=== PATIENT | male | born 1965 | race Caucasian/White ===

== ENCOUNTER 2019-03-27 22:46 | Observation (INO) ==
[2019-03-27] MEDS: 0.9 % Sodium Chloride 1,000 ML IVC SCH (23:34)
[2019-03-27 23:37] LABS: Basophils % 0.3 %; Eosinophils # 0.1 K/mcL (0.0-0.6); Eosinophils % 0.4 %; Hematocrit 36.2 % (37.5-50.1); Hemoglobin 11.3 g/dL (12.9-16.9); Immature Granulocytes % 0.4 % (0-4); Lymphocytes # 1.5 K/mcL (0.6-4.6); Lymphocytes % 10.5 %; Mean Corpuscular HGB Conc 31.2 g/dL (31.6-35.5); Mean Corpuscular Hemoglobin 24.9 pg (28.0-33.3); Mean Corpuscular Volume 79.9 fL (83.0-100.0); Mean Platelet Volume 9.7 fL (9.4-12.4); Monocytes # 0.5 K/mcL (0.0-1.3); Monocytes % 3.7 %; Neutrophils # 11.8 K/mcL (1.6-8.9); Platelet Count 246 K/mcL (140-400); Red Blood Count 4.53 M/mcL (4.19-5.50); Red Cell Distribution Width 15.7 % (11.5-14.5); Segmented Neutrophils % 84.7 %; White Blood Count 13.9 K/mcL (4.3-11.1)
[2019-03-27 23:46] LABS: Bilirubin,Urine Negative (Negative); Blood,Urine Trace (Negative); Clarity,Urine Clear (Clear); Color,Urine Dark Yellow (Yellow); Glucose,Urine (UA) 250 mg/dL (Normal); Ketones,Urine Negative (Negative); Leukocyte Esterase,Urine Small (Negative); Nitrite,Urine Negative (Negative); PH,Urine 5.5 pH Units (5.0-8.0); Protein,Urine 100 mg/dL (Neg-Trace); Specific Gravity,Urine > 1.030 (1.010-1.025); Urobilinogen,Urine Normal (Normal)
[2019-03-27 23:49] LABS: Bacteria,Urine None Seen per hpf (None-Few); Hyaline Casts,Urine None Seen per lpf (None-Few); Squamous Epithelial Cell,Urine Moderate per lpf (None-Few); WBC,Urine 50-100 per hpf (0-3)
[2019-03-28 00:01] LABS: BUN/Creatinine Ratio 16 (6-26); Blood Urea Nitrogen 19 mg/dL (6-20); Calcium 8.9 mg/dL (8.6-10.3); Carbon Dioxide 27 mEq/L (23-29); Chloride 101 mEq/L (98-107); Glucose 130 mg/dL (70-105); Lipase 24 Units/L (11-82); Osmolality,Calculated 286 (280-300); Potassium 3.5 mEq/L (3.5-5.1); Sodium 136 mEq/L (136-145); eGFR For African Americans > 60 (> 60); eGFR For Non-African Americans > 60 (> 60)
[2019-03-28] MEDS ORDERED: Ondansetron 4 MG/2 ML VIAL IVP ONE (00:06)
[2019-03-28] MEDS ORDERED: Ketorolac 30 MG/ML VIAL IVP ONE (00:06)
[2019-03-28] MEDS: 0.9 % Sodium Chloride 1,000 ML IVC SCH (00:46)
[2019-03-28] MEDS ORDERED: Piperacillin/Tazobactam 3.375 GM in 0.9 % Sodium Chloride Mini Bag 100 ML IVPB ONE (01:25)
--- NOTE | 2019-03-28 02:08 | Emergency Department Note ---
Disposition Clinical Impression: SIRS (systemic inflammatory response syndrome), Left-shifted white blood cells Prostatitis Qualifiers: Prostatitis type: acute Qualified Code(s): N41.0 - Acute prostatitis Fever Qualifiers: Fever type: unspecified Qualified Code(s): R50.9 - Fever, unspecified Sepsis Qualifiers: Sepsis type: sepsis due to unspecified organism Sepsis acute organ dysfunction status: without acute organ dysfunction Qualified Code(s): A41.9 - Sepsis, unspecified organism Leukocytosis Qualifiers: Leukocytosis type: unspecified Qualified Code(s): D72.829 - Elevated white blood cell count, unspecified Disposition: Admitted As Inpatient Condition: Fair Time of Disposition: 01:35 Fever HPI - General Chief Complaint: ED Fever Stated Complaint: Fever, Chills, Body Aches Time Seen by Provider: 03/27/19 23:17 Source: patient, family Limitations: no limitations Nursing Notes Reviewed: Yes Vital Signs Reviewed: Yes - History of Present Illness HPI Narrative: 53-year-old male presents complaining of lower midline abdominal pain associated with nausea, dysuria, subjective fever, and chills. He denies any diarrhea, vomiting, chest pain, palpitations. Patient also complains of generalized body aches and states that he overall just does not feel well. Denies history of kidney stones. States that he has had his gallbladder and he believes his appendix out. He states that although the location of his pain is lower abdominal area/suprapubic area states it is very deep and palpation really does not make it any worse but ambulating and sitting up sometimes does. Denies any sick contacts or IV drug use. Pt Subjective Complaint: fever Onset (ago): day(s) (1) Temperature Source: subjective Associated symptoms: Reports: chills, abdominal pain, nausea. Denies: rhinorrhea, nasal congestion, sore throat, stiff neck, cough, chest pain, vomiting, dysuria, rash Improves with: nothing Worsens with: other (Nothing specific) Treatments prior to arrival fever: acetaminophen - Related Data Home Medications Medication Instructions Recorded Confirmed Alprazolam 0.5 mg PO TID 12/09/15 03/28/19 Carvedilol 25 mg PO BID 12/09/15 03/28/19 Cyclobenzaprine HCl 10 mg PO TID 12/09/15 03/28/19 Glimepiride 4 mg PO BID 12/09/15 03/28/19 Lisinopril 40 mg PO DAILY 12/09/15 03/28/19 Meloxicam 15 mg PO DAILY 12/09/15 03/28/19 Metformin HCl 1,000 mg PO BID 12/09/15 03/28/19 Simvastatin 40 mg PO DAILY 12/09/15 03/28/19 Aspirin 81 mg PO DAILY 03/28/19 03/28/19 Allergies Allergy/AdvReac Type Severity Reaction Status Date / Time No Known Allergies Allergy Verified 07/07/17 14:53 All systems ED: reviewed and negative except as stated. Constitutional: Reports: fever, chills. Denies: weakness, weight change Eyes: Denies: eye pain, eye discharge, vision change ENT ED: Denies: ear pain, throat pain, dental pain, hearing loss, epistaxis, congestion, dysphagia Cardiovascular: Denies: chest pain, palpitations, dyspnea on exertion, edema, syncope Respiratory: Denies: cough, dyspnea, wheezes, hemoptysis, stridor Gastrointestinal: Reports: abdominal pain, nausea. Denies: vomiting, diarrhea, constipation, hematemesis, melena, hematochezia Genitourinary: Reports: urgency. Denies: dysuria, frequency, hematuria, discharge, testicular pain Musculoskeletal: Denies: back pain, neck pain, arthralgia, myalgia Integumentary: Denies: rash, abrasion, lesions Neurological: Denies: headache, weakness, numbness, paresthesias, confusion, ab normal gait, vertigo Psychiatric: Denies: anxiety, depression, suicidal thoughts, homicidal thoughts, auditory hallucinations, visual hallucinations Endocrine: Denies: fatigue Hematological/Lymphatic: Denies: easy bleeding, easy bruising Allergic/Immunologic: Denies: facial swelling, urticaria Fever PMH - Past Medical History Medical history: Reports: hyperlipidemia, hypertension, myocardial infarction Psychiatric history: Reports: anxiety - Social History Smoking Status: Former smoker Alcohol use: Reports: none Drug use: Reports: none Physical Exam - General Limitations: no limitations General appearance: alert, in distress - Head Head exam: atraumatic, normocephalic, normal inspection - Eye Eye exam: Present: normal appearance, PERRL, EOMI - ENT ENT exam: normal exam, normal oropharynx, mucous membranes dry - Neck Neck exam: Present: normal inspection, full ROM, trachea midline. Absent: tenderness, meningismus, lymphadenopathy, thyromegaly - Chest Chest inspection: Present: normal inspection, symmetric chest wall rise. Absent: tenderness - Respiratory Respiratory exam: Present: normal lung sounds bilaterally. Absent: respiratory distress, wheezes, accessory muscle use - Cardiovascular Cardiovascular exam: Present: tachycardia (Sinus tachycardia). Absent: systolic murmur, rubs, clicks - Abdominal Exam Abdominal exam: Present: soft, tenderness (Suprapubic and with deep palpation of the lower abdomen.), normal bowel sounds. Absent: distention, guarding, rebound, rigidity, diminished bowel sounds, hyperactive bowel sounds, hypoactive bowel sounds, organomegaly, psoas sign, obturator sign, heel tap sign, Dowd's sign, Rovsing's sign, tenderness at McBurney's Point, ascites - Extremities Exam Extremities exam: Present: normal inspection, full ROM, normal capillary refill. Absent: tenderness, pedal edema - Expanded Lower Extremity Exam Neurovascular/Tendon exam: Present: normal capillary refill. Absent: pulse deficit, motor deficit, sensory deficit, tendon deficit - Back Exam Back exam: Present: normal inspection, full ROM. Absent: tenderness, CVA tenderness (R), CVA tenderness (L), paraspinal tenderness, vertebral tenderness - Neurological Exam Neurological exam: Present: alert, oriented X3, CN II-XII intact. Absent: motor sensory deficit - Skin Skin exam: Present: warm, dry, intact, normal color. Absent: rash, cyanosis, erythema Course Course Narrative: Patient was placed in examination room, nurse's notes reviewed, H&P obtained. Patient was noted be tachycardic with an increase risk for a rate low-grade fever. Patient did meet systemic inflammatory response syndrome. Patient was ordered normal saline 30 mL/kg IV bolus based on his ideal body weight of 64 kg which equals 1920mL Patient's blood pressure remained stable. He was given Toradol for his pain as well as fever. His temperature did rise to 101.3 degrees. Lactate was normal at 1.3 Patient initially was given Tylenol 1 g with a small sip of water. CT scan was obtained to rule out possible stone. Analysis did not appear to be infected as there was leukocyte esterase and few red cells but a larger amount of white cells. Patient was given Zosyn and vancomycin for the treatment of prostatitis and sepsis. I did discuss with the hospitalist concerning initial antibiotic coverage but they would add additional coverage if necessary. I did suggest Lev aquin would also be appropriate which would also cover atypical bacteria, Escherichia coli as well. Patient did meet sepsis criteria at 0125 A sepsis recheck was performed at 0131 which demonstrated improved heart rate, lungs being clear, capillary refill less than 3 seconds, no respiratory distress and is stable and improved vital signs. - Reevaluation(s) Reevaluation #1: Patient still was uncomfortable. fluids have been started and Toradol was order ed. Time: 23:15 Reevaluation #2: Patient is resting. Patient did spike a fever and was given Tylenol in additional to Toradol. Patient was given morphine 4 mg IV push as he still having pain and discomfort. Time: 00:15 Reevaluation #3: Patient is now resting comfortably and is afebrile and aware and agreeable to admission to the hospital. All results were reviewed. Time: 01:35 - Consultations Consultation #1: was contacted and agreed with admission. Time: 01:35 Vital Signs Temperature 100 F H 03/27/19 22:57 Pulse Rate 105 03/27/19 22:57 Respiratory Rate 20 03/27/19 22:57 Blood Pressure 134/70 03/27/19 22:57 O2 Sat by Pulse Oximetry 100 03/27/19 22:57 Temperature 98.2 F 03/28/19 06:48 Pulse Rate 82 03/28/19 06:48 Respiratory Rate 14 03/28/19 06:48 Blood Pressure 98/54 03/28/19 06:48 O2 Sat by Pulse Oximetry 78 03/28/19 06:48 Oxygen Delivery Oxygen Delivery Room Air Fever - Differential Diagnosis Likely: pyelonephritis, sepsis, SIRS, other (Infected kidney stone) - Medical Records Medical records reviewed: Yes I reviewed the patient's medical records. - Lab Data Lab results reviewed: Yes I reviewed the patient's lab results. Lab results narrative: Laboratory Tests 03/27/19 03/27/19 03/27/19 23:15 23:15 23:15 WBC 13.9 H RBC 4.53 Hgb 11.3 L Hct 36.2 L MCV 79.9 L MCH 24.9 L MCHC 31.2 L RDW 15.7 H Plt Count 246 MPV 9.7 Immature Gran % 0.4 Seg Neutrophils % 84.7 Lymphocytes % 10.5 Monocytes % 3.7 Eosinophils % 0.4 Basophils % 0.3 Neutrophils # 11.8 H Lymphocytes # 1.5 Monocytes # 0.5 Eosinophils # 0.1 Basophils # 0.0 Sodium 136 Potassium 3.5 Chloride 101 Carbon Dioxide 27 BUN 19 Creatinine 1.18 Est GFR ( Amer) > 60 Est GFR (Non-Af Amer) > 60 BUN/Creatinine Ratio 16 Glucose 130 H Calculated Osmolality 286 Lactic Acid 1.3 Calcium 8.9 Lipase 24 Urine Color Urine Clarity Urine pH Ur Specific [place] Urine Protein Urine Glucose (UA) Urine Ketones Urine Blood Urine Nitrite Urine Bilirubin Urine Urobilinogen Ur Leukocyte Esterase Urine Microscopic RBC Urine Microscopic WBC Ur Squamous Epith Cells Urine Bacteria Hyaline Casts Ur Culture Indicated? 03/27/19 23:31 WBC RBC Hgb Hct MCV MCH MCHC RDW Plt Count MPV Immature Gran % Seg Neutrophils % Lymphocytes % Monocytes % Eosinophils % Basophils % Neutrophils # Lymphocytes # Monocytes # Eosinophils # Basophils # Sodium Potassium Chloride Carbon Dioxide BUN Creatinine Est GFR ( Amer) Est GFR (Non-Af Amer) BUN/Creatinine Ratio Glucose Calculated Osmolality Lactic Acid Calcium Lipase Urine Color Dark Yellow Urine Clarity Clear Urine pH 5.5 Ur Specific [place] > 1.030 H Urine Protein 100 H Urine Glucose (UA) 250 H Urine Ketones Negative Urine Blood Trace H Urine Nitrite Negative Urine Bilirubin Negative Urine Urobilinogen Normal Ur Leukocyte Esterase Small H Urine Microscopic RBC 3-5 H Urine Microscopic WBC 50-100 H Ur Squamous Epith Cells Moderate H Urine Bacteria None Seen Hyaline Casts None Seen Ur Culture Indicated? YES A Result diagrams: 03/27/19 23:15 03/27/19 23:15 Lab Results 03/27/19 03/27/19 03/27/19 Range/Units 23:15 23:15 23:15 WBC 13.9 H (4.3-11.1) K/mcL RBC 4.53 (4.19-5.50) M/mcL Hgb 11.3 L (12.9-16.9) g/dL Hct 36.2 L (37.5-50.1) % MCV 79.9 L (83.0-100.0) fL MCH 24.9 L (28.0-33.3) pg MCHC 31.2 L (31.6-35.5) g/dL RDW 15.7 H (11.5-14.5) % Plt Count 246 (140-400) K/mcL MPV 9.7 (9.4-12.4) fL Immature Gran % 0.4 (0-4) % Seg Neutrophils % 84.7 % Lymphocytes % 10.5 % Monocytes % 3.7 % Eosinophils % 0.4 % Basophils % 0.3 % Neutrophils # 11.8 H (1.6-8.9) K/mcL Lymphocytes # 1.5 (0.6-4.6) K/mcL Monocytes # 0.5 (0.0-1.3) K/mcL Eosinophils # 0.1 (0.0-0.6) K/mcL Basophils # 0.0 (0.0-0.2) K/mcL Sodium 136 (136-145) mEq/L Potassium 3.5 (3.5-5.1) mEq/L Chloride 101 (98-107) mEq/L Carbon Dioxide 27 (23-29) mEq/L BUN 19 (6-20) mg/dL Creatinine 1.18 (0.70-1.30) mg/dL Est GFR ( Amer) > 60 (> 60) Est GFR (Non-Af Amer) > 60 (> 60) BUN/Creatinine Ratio 16 (6-26) Glucose 130 H (70-105) mg/dL Calculated Osmolality 286 (280-300) Lactic Acid 1.3 (0.5-2.2) mmol/L Calcium 8.9 (8.6-10.3) mg/dL Lipase 24 (11-82) Units/L Urine Color (Yellow) Urine Clarity (Clear) Urine pH (5.0-8.0) pH Units Ur Specific [place] (1.010-1.025) Urine Protein (Neg-Trace) mg/dL Urine Glucose (UA) (Normal) mg/dL Urine Ketones (Negative) mg/dL Urine Blood (Negative) Urine Nitrite (Negative) Urine Bilirubin (Negative) Urine Urobilinogen (Normal) mg/dL Ur Leukocyte Esterase (Negative) Urine Microscopic RBC (0-3) per hpf Urine Microscopic WBC (0-3) per hpf Ur Squamous Epith Cells (None-Few) per lpf Urine Bacteria (None-Few) per hpf Hyaline Casts (None-Few) per lpf Ur Culture Indicated? (NO) 03/27/19 Range/Units 23:31 WBC (4.3-11.1) K/mcL RBC (4.19-5.50) M/mcL Hgb (12.9-16.9) g/dL Hct (37.5-50.1) % MCV (83.0-100.0) fL MCH (28.0-33.3) pg MCHC (31.6-35.5) g/dL RDW (11.5-14.5) % Plt Count (140-400) K/mcL MPV (9.4-12.4) fL Immature Gran % (0-4) % Seg Neutrophils % % Lymphocytes % % Monocytes % % Eosinophils % % Basophils % % Neutrophils # (1.6-8.9) K/mcL Lymphocytes # (0.6-4.6) K/mcL Monocytes # (0.0-1.3) K/mcL Eosinophils # (0.0-0.6) K/mcL Basophils # (0.0-0.2) K/mcL Sodium (136-145) mEq/L Potassium (3.5-5.1) mEq/L Chloride (98-107) mEq/L Carbon Dioxide (23-29) mEq/L BUN (6-20) mg/dL Creatinine (0.70-1.30) mg/dL Est GFR ( Amer) (> 60) Est GFR (Non-Af Amer) (> 60) BUN/Creatinine Ratio (6-26) Glucose (70-105) mg/dL Calculated Osmolality (280-300) Lactic Acid (0.5-2.2) mmol/L Calcium (8.6-10.3) mg/dL Lipase (11-82) Units/L Urine Color Dark Yellow (Yellow) Urine Clarity Clear (Clear) Urine pH 5.5 (5.0-8.0) pH Units Ur Specific [place] > 1.030 H (1.010-1.025) Urine Protein 100 H (Neg-Trace) mg/dL Urine Glucose (UA) 250 H (Normal) mg/dL Urine Ketones Negative (Negative) mg/dL Urine Blood Trace H (Negative) Urine Nitrite Negative (Negative) Urine Bilirubin Negative (Negative) Urine Urobilinogen Normal (Normal) mg/dL Ur Leukocyte Esterase Small H (Negative) Urine Microscopic RBC 3-5 H (0-3) per hpf Urine Microscopic WBC 50-100 H (0-3) per hpf Ur Squamous Epith Cells Moderate H (None-Few) per lpf Urine Bacteria None Seen (None-Few) per hpf Hyaline Casts None Seen (None-Few) per lpf Ur Culture Indicated? YES A (NO) - Radiology Data Radiology results reviewed: Yes I reviewed the patient's radiology results. Chest X-Ray 03/27/19 23:06 IMPRESSION: No acute process. D/ / Peter Hawkins / Peter Hawkins Interpreting Provider: Peter Hawkins Abdomen/Pelvis CT 03/28/19 00:07 IMPRESSION: Edema adjacent to the prostate suspicious for prostatitis. No diverticulitis or renal calculi. D/ / Peter Hawkins / Peter Hawkins Interpreting Provider: Peter Hawkins Critical Care Time Critical Care Time: Yes Total Critical Care Time: 60 Attestation: The high probability of a clinically significant, sudden or life threatening deterioration of the patient's condition required my full and direct attention, intervention and personal management.
[2019-03-28] MEDS ORDERED: Naloxone 0.4 MG/ML INJ IVP PRN (06:59)
[2019-03-28] MEDS ORDERED: D5% in Water 1,000 ML IVC PRN (07:07)
[2019-03-28] MEDS ORDERED: Dextrose Gel 15 GM/37.5 ML TUBE PO PRN ×2 (07:07)
[2019-03-28] MEDS ORDERED: *HR* Dextrose 50 % in Water (Syg) 50 ML SYRINGE IVP PRN (07:07)
[2019-03-28] MEDS ORDERED: 0.9 % Sodium Chloride 1,000 ML IVC ONE (07:12)
--- NOTE | 2019-03-28 07:13 | Internal Med History&Physical ---
Date of Encounter: 03/28/19 Time of Encounter: 06:00 Internal Medicine - H&P: HPI Chief complaint: Prostatitis Admitted From: Emergency Dept Plans for Post Hospital Care: Home History of present illness: Mr. Newton is a 53 year old male Patient presented to the ER with feeling of pressure in the lower abdomen, fevers, chills and joint pain for 2 days. He states that he had a measurable temperature of 100.4, with a Tmax of 102 at home as well. He had been at work, and states that he felt very ill. He took the next day off, but was not improving so he came to the hospital for further evaluation. He has never had symptoms like this before. ER vital signs: Initial temperature of 100, increasing to 101.3, pulse of 105, respiratory rate of 20. Blood pressure 134/70, O2 saturation 100% on room air. CBC: WBC 13.9, Hg 11.3, Platelets 246. BMP: Mildly elevated blood glucose of 130, otherwise within normal limits. Lactic acid 1.3 Lipase 24 Urinalysis: Elevated specific gravity, 100 protein, 250 glucose, trace blood, negative nitrite, Small leukocyte esterase, 50-100 WBCs and no urine bacteria. Chest x-ray: no acute process Abdomen and pelvis CT: IMPRESSION: Edema adjacent to the prostate suspicious for prostatitis. No diverticulitis or renal calculi. In the ER patient received 1L bolus of IV fluids, 1g of tylenol and was started on vanc and zosyn. Urine and blood cultures were obtained. Patient was admitted to the hospital for further management. Upon my evaluation the patient was resting comfortably in the hospital bed in no acute distress. He denies chest pain, abdominal pain, nausea, vomiting, diarrhea and constipation. His lower abdominal pain has nearly resolved. His fever has also improved. He is a full code. Past Med Surg Social Fam HX - Past Medical History Medical history: diabetes, hyperlipidemia, hypertension, myocardial infarction Psychiatric history: anxiety - Past Surgical History Surgical History: cholecystectomy Additional surgical history: cardiac stent x 1 - Social History Smoking Status: Former smoker Smokeless Tobacco Status: No Alcohol use: none Drug use: none - Family History Father Hx Family Cardiac Disorders: Yes (Heart disease) Hx Family Medical Disorders: Yes (Prostate problems) Internal Medicine - H&P: Meds Alprazolam 0.5 mg PO TID 12/09/15 [History] Carvedilol 25 mg PO BID 12/09/15 [History] Cyclobenzaprine HCl 10 mg PO TID 12/09/15 [History] Glimepiride 4 mg PO BID 12/09/15 [History] Lisinopril 40 mg PO DAILY 12/09/15 [History] Meloxicam 15 mg PO DAILY 12/09/15 [History] Metformin HCl 1,000 mg PO BID 12/09/15 [History] Simvastatin 40 mg PO DAILY 12/09/15 [History] Aspirin 81 mg PO DAILY 03/28/19 [History] Allergy/AdvReac Type Severity Reaction Status Date / Time No Known Allergies Allergy Verified 07/07/17 14:53 All Systems PM: A 10-system review of systems was performed and is negative for pertinent findings except as documented above in the HPI. - Constitutional Vitals: Temp Pulse Resp BP Pulse Ox 98.2 F 82 14 98/54 78 03/28/19 06:48 03/28/19 06:48 03/28/19 06:48 03/28/19 06:48 03/28/19 06:48 General appearance: Present: cooperative, A&O X 3, pleasant, no acute distress, answers questions appropriately Exam: - - Head Head exam: Present: normal inspection - Eye Eye exam: Present: EOMI, normal appearance - Respiratory Respiratory exam: Present: CTAB. Absent: rales, respiratory distress, rhonchi, wheezes - Cardiovascular Cardiovascular exam: Present: RRR. Absent: diastolic murmur, systolic murmur - GI/Abdominal GI/Abdominal exam: Present: normal bowel sounds, soft. Absent: tenderness - Extremities Exam Extremities exam: Present: warm, radial pulses palpable and symmetrical. Absent: calf tenderness, pedal edema, tenderness - Neurological Exam Neurological exam: Present: no focal deficits, strengths equal and symetr throughout. Absent: motor sensory deficit, facial droop, speech deficit - Skin Skin exam: Present: dry, normal color, warm Internal Med - H&P Results - Labs CBC & Chem 7: 03/27/19 23:15 03/27/19 23:15 Labs: Short CBC 03/27/19 Range/Units 23:15 WBC 13.9 H (4.3-11.1) K/mcL Hgb 11.3 L (12.9-16.9) g/dL Hct 36.2 L (37.5-50.1) % Plt Count 246 (140-400) K/mcL Neutrophils # 11.8 H (1.6-8.9) K/mcL BMP 03/27/19 23:15 Sodium 136 Potassium 3.5 Chloride 101 Carbon Dioxide 27 BUN 19 Creatinine 1.18 Glucose 130 H Calcium 8.9 Urine 03/27/19 Range/Units 23:31 Urine Color Dark Yellow (Yellow) Urine Clarity Clear (Clear) Urine pH 5.5 (5.0-8.0) pH Units Ur Specific [place] > 1.030 H (1.010-1.025) Urine Protein 100 H (Neg-Trace) mg/dL Urine Glucose (UA) 250 H (Normal) mg/dL - Impressions ITS Impressions Chest X-Ray 03/27/19 23:06 IMPRESSION: No acute process. D/ / Peter Hawkins / Peter Hawkins Interpreting Provider: Peter Hawkins Abdomen/Pelvis CT 03/28/19 00:07 IMPRESSION: Edema adjacent to the prostate suspicious for prostatitis. No diverticulitis or renal calculi. D/ / Peter Hawkins / Peter Hawkins Interpreting Provider: Peter Hawkins - Assessment and Plan (1) Prostatitis Current Visit: Yes Status: Acute Assessment and plan: As seen on CT, patient had edema adjacent to this prostate. He has also had some pain with urination, and dark urine. He denies previous history of prostate problems. Patient was given vanc and zosyn in the ER. Urine and blood cultures were obtained. Discontinue vanc and zosyn, start levaquin Consider urology consult Follow up culture results Monitor for worsening signs of infection. Qualifiers: Prostatitis type: acute Qualified Code(s): N41.0 - Acute prostatitis (2) Diabetes Current Visit: Yes Status: Acute Assessment and plan: Patient is not an insulin dependent diabetic Monitor sugars ACHS Diabetic diet Low dose insulin sliding scale as needed Hold home meds. Qualifiers: Diabetes mellitus type: type 2 Diabetes mellitus joint terminal attack controller insulin use: without joint terminal attack controller use Diabetes mellitus complication status: with hyperglycemia Qualified Code(s): E11.65 - Type 2 diabetes mellitus with hyperglycemia (3) Fever Current Visit: Yes Status: Acute Assessment and plan: Now resolved. Likely secondary to prostatitis seen on imaging. Continue to monitor Tylenol for further fevers. Qualifiers: Fever type: unspecified Qualified Code(s): R50.9 - Fever, unspecified (4) DVT prophylaxis Current Visit: Yes Status: Acute Assessment and plan: Subcutaneous heparin - Time Spent With Patient Total time spent is greater than 50% in coordination of care (as documented) at patient's floor/unit and/or counseling patient: Greater than 35 minutes
[2019-03-28] MEDS ORDERED: Acetaminophen 325 MG TABLET PO PRN (07:15)
[2019-03-28] MEDS: Insulin LISPRO 300 UNITS/3 ML VIAL SQ SCH ×4 (08:13→22:02)
[2019-03-28] MEDS: levoFLOXacin 750 MG/150 ML 750 MG/150 ML BAG IVPB SCH (08:17)
[2019-03-28] MEDS: Aspirin Enteric Coated 81 MG Tablet PO SCH (08:18)
[2019-03-28 08:33] LABS: Hematocrit 31.7 % (37.5-50.1); Hemoglobin 9.8 g/dL (12.9-16.9); Mean Corpuscular HGB Conc 30.9 g/dL (31.6-35.5); Mean Corpuscular Hemoglobin 25.4 pg (28.0-33.3); Mean Corpuscular Volume 82.1 fL (83.0-100.0); Mean Platelet Volume 9.9 fL (9.4-12.4); Platelet Count 198 K/mcL (140-400); Red Blood Count 3.86 M/mcL (4.19-5.50); Red Cell Distribution Width 15.9 % (11.5-14.5); White Blood Count 11.9 K/mcL (4.3-11.1)
[2019-03-28] MEDS ORDERED: 0.9 % Sodium Chloride 500 ML IVC PRN (08:48)
[2019-03-28 08:49] LABS: BUN/Creatinine Ratio 19 (6-26); Blood Urea Nitrogen 21 mg/dL (6-20); Carbon Dioxide 25 mEq/L (23-29); Chloride 107 mEq/L (98-107); Glucose 72 mg/dL (70-105); Osmolality,Calculated 290 (280-300); Potassium 3.5 mEq/L (3.5-5.1); Sodium 139 mEq/L (136-145); eGFR For African Americans > 60 (> 60); eGFR For Non-African Americans > 60 (> 60)
[2019-03-28] MEDS ORDERED: ALPRAZolam 0.5 MG TABLET PO SCH (09:00)
--- NOTE | 2019-03-28 09:14 | Event Note ---
Date of Encounter: 03/28/19 Time of Encounter: 07:45 H&P reviewed. 53-year-old male with history of diabetes and hypertension is admitted for sepsis secondary to prostatitis. Febrile, tachycardic, and had leukocytosis on presentation. Started on abx and Urology consulted. Hold off on anti-HTN meds in view of borderline BP. Incidentally, his hemoglobin is noted to be 9.8 (was 11.8 in 04/2018) and will initiate workup including stool occult and iron profile.
--- NOTE | 2019-03-28 09:56 | Urology - Consult Note ---
<Imani Robles N - Last Filed: 03/28/19 09:54> Date of Encounter: 03/28/19 Time of Encounter: 09:15 - Assessment and Plan (1) Prostatitis Current Visit: Yes Status: Acute Assessment and plan: Patient is a 53-year-old male who presents with a history of prostatitis. Currently, vital signs are stable and afebrile. Blood and urine cultures are pending, and patient is receiving IV Levaquin. Dr. Reeves reviewed CT images. We discussed the possibility of early development of prostate abscess. I discussed with patient the possibility of repeat imaging versus TURP procedure if prostate abscess is clearly identified. We will continue with IV antibiotics and supportive care, and Dr. Reeves will be in to reevaluate patient. Qualifiers: Prostatitis type: acute Qualified Code(s): N41.0 - Acute prostatitis Urology CN:HPI Consult date: 03/28/19 Reason for consult Urology: Other (prostatitis) Requesting physician: Dave Mitchell History of present illness: Patient is a 53-year-old male who presents with a history of prostatitis. Patient reports a 2 day history of vague lower abdominal pain, diffuse body aches and chills, and fever to 102F. Patient presented to the emergency department where he underwent a noncontrast CT of the abdomen and pelvis revealing edema adjacent to the prostate, concerning for prostatitis. White blood cell count on admission was elevated to 13.9, and patient experienced a maximum temperature to 101.3. Patient has received IV Zosyn and vancomycin, and he is now receiving IV Levaquin. Patient reports he is experienced similar symptoms in the past, but they were much less severe and self-limited. On my evaluation, patient is sitting upright in bed in no apparent distress, and he denies any fever or chills at present. She admits to some perineal pressure and rectal pain with urination. He denies any dysuria or gross hematuria. Patient has no known family history of prostate cancer or other malignancy. Past Med Surg Social Fam HX - Past Medical History Medical history: diabetes, hyperlipidemia, hypertension, myocardial infarction Psychiatric history: anxiety - Past Surgical History Surgical History: cholecystectomy Additional surgical history: cardiac stent x 1 - Social History Smoking Status: Former smoker Smokeless Tobacco Status: No Alcohol use: none Drug use: none - Family History Father Hx Family Cardiac Disorders: Yes (Heart disease) Hx Family Medical Disorders: Yes (Prostate problems) Medications and Allergies ALPRAZolam [Xanax 0.5 MG Tablet] 0.5 mg PO HS 03/28/19 [History] Aspirin [Lo-Dose Aspirin EC] 81 mg PO DAILY 03/28/19 [History] Carvedilol [Coreg] 25 mg PO BID 03/28/19 [History] Cholecalciferol (Vitamin D3) [Vitamin D3] 10,000 unit PO MO 03/28/19 [History] Cyclobenzaprine [Flexeril] 10 mg PO HS 03/28/19 [History] Glimepiride [Amaryl] 4 mg PO BID 03/28/19 [History] Insulin Degludec [Tresiba Flextouch U-100] 46 unit SQ DAILY 03/28/19 [History] Lisinopril [Zestril] 40 mg PO DAILY 03/28/19 [History] Meloxicam 15 mg PO DAILY 03/28/19 [History] Metformin HCl 1,000 mg PO BID 03/28/19 [History] Pioglitazone HCl 45 mg PO DAILY 03/28/19 [History] Simvastatin [Zocor] 40 mg PO HS 03/28/19 [History] Allergy/AdvReac Type Severity Reaction Status Date / Time No Known Allergies Allergy Verified 07/07/17 14:53 Review of Systems - Constitutional fatigue, fever(s) - EENT Nose, mouth and throat: no dizziness, no headache(s) - Cardiovascular no chest pain, no diaphoresis, no dyspnea - Respiratory no cough, no dyspnea - Gastrointestinal abdominal pain, nausea, no vomiting - Genitourinary no change in urinary stream, no difficulty urinating, no dysuria, no flank pain, no hematuria, no nocturia, no post void dribbling, no urinary frequency, no urinary hesitancy, no urinary incontinence, no urinary urgency - Musculoskeletal no back pain, no muscle weakness - Integumentary no erythema, no rash - Neurological no confusion, no sensory deficit - Psychiatric no anxiety, no confusion - Hematologic/Lymphatic no easy bleeding, no easy bruising - Allergic/Immunologic no throat swelling, no wheezing Exam Initial Vital Signs Temp Pulse Resp BP Pulse Ox 100 F H 105 20 134/70 100 03/27/19 22:57 03/27/19 22:57 03/27/19 22:57 03/27/19 22:57 03/27/19 22:57 - General physical appearance Present: well developed, no distress, no pain - Eyes Present: PERRL, normal ocular movement - ENT Present: normal nares, no hearing loss, no congestion - Neck Present: no masses, trachea midline, no lymphadenopathy - Respiratory Present: normal respiratory effort - Cardiovascular Cardiovascular exam IM: RRR - Abdomen Abdomen: Present: soft, suprapubic tenderness. Absent: distended - Integumentary Present: no rash, no abnormal pigmentation - Neurologic Present: normal coordination - Musculoskeletal Present: other (Normal posture) Urology Results - Labs 03/28/19 08:08 03/28/19 08:08 Abnormal lab results WBC 11.9 K/mcL (4.3-11.1) H 03/28/19 08:08 RBC 3.86 M/mcL (4.19-5.50) L 03/28/19 08:08 Hgb 9.8 g/dL (12.9-16.9) L D 03/28/19 08:08 Hct 31.7 % (37.5-50.1) L 03/28/19 08:08 MCV 82.1 fL (83.0-100.0) L 03/28/19 08:08 MCH 25.4 pg (28.0-33.3) L 03/28/19 08:08 MCHC 30.9 g/dL (31.6-35.5) L 03/28/19 08:08 RDW 15.9 % (11.5-14.5) H 03/28/19 08:08 Neutrophils # 11.8 K/mcL (1.6-8.9) H 03/27/19 23:15 BUN 21 mg/dL (6-20) H 03/28/19 08:08 Glucose 130 mg/dL (70-105) H 03/27/19 23:15 Calcium 8.0 mg/dL (8.6-10.3) L 03/28/19 08:08 Ur Specific [place] > 1.030 (1.010-1.025) H 03/27/19 23:31 Urine Protein 100 mg/dL (Neg-Trace) H 03/27/19 23:31 Urine Glucose (UA) 250 mg/dL (Normal) H 03/27/19 23:31 Urine Blood Trace (Negative) H 03/27/19 23:31 Ur Leukocyte Esterase Small (Negative) H 03/27/19 23:31 Urine Microscopic RBC 3-5 per hpf (0-3) H 03/27/19 23:31 Urine Microscopic WBC 50-100 per hpf (0-3) H 03/27/19 23:31 Ur Squamous Epith Cells Moderate per lpf (None-Few) H 03/27/19 23:31 Ur Culture Indicated? YES (NO) A 03/27/19 23:31 Diabetes panel 03/27/19 03/28/19 Range/Units 23:15 08:08 Sodium 136 139 (136-145) mEq/L Potassium 3.5 3.5 (3.5-5.1) mEq/L Chloride 101 107 (98-107) mEq/L Carbon Dioxide 27 25 (23-29) mEq/L BUN 19 21 H (6-20) mg/dL Creatinine 1.18 1.12 (0.70-1.30) mg/dL Glucose 130 H 72 (70-105) mg/dL Calcium 8.9 8.0 L (8.6-10.3) mg/dL Calcium panel 03/27/19 03/28/19 Range/Units 23:15 08:08 Calcium 8.9 8.0 L (8.6-10.3) mg/dL Pituitary panel 03/27/19 03/28/19 Range/Units 23:15 08:08 Sodium 136 139 (136-145) mEq/L Potassium 3.5 3.5 (3.5-5.1) mEq/L Chloride 101 107 (98-107) mEq/L Carbon Dioxide 27 25 (23-29) mEq/L BUN 19 21 H (6-20) mg/dL Creatinine 1.18 1.12 (0.70-1.30) mg/dL Glucose 130 H 72 (70-105) mg/dL Calcium 8.9 8.0 L (8.6-10.3) mg/dL Adrenal panel 03/27/19 03/28/19 Range/Units 23:15 08:08 Sodium 136 139 (136-145) mEq/L Potassium 3.5 3.5 (3.5-5.1) mEq/L Chloride 101 107 (98-107) mEq/L Carbon Dioxide 27 25 (23-29) mEq/L BUN 19 21 H (6-20) mg/dL Creatinine 1.18 1.12 (0.70-1.30) mg/dL Glucose 130 H 72 (70-105) mg/dL Calcium 8.9 8.0 L (8.6-10.3) mg/dL All other labs normal. - Imaging CT scan - abdomen: report reviewed, image reviewed CT scan - pelvis: report reviewed, image reviewed Consult Discharge Plan - Plan Referrals: Dorothea Martinez, LEI [Primary Care Provider] - <Martir Reeves - Last Filed: 03/28/19 18:02> Date of Encounter: 03/28/19 - Assessment and Plan (1) Prostatitis Current Visit: Yes Status: Acute Assessment and plan: I strongly suspect that the patient has acute bacterial prostatitis. I personally reviewed the CT images and there is an area on the left peripheral aspect of the prostate that could be a developing abscess. It is difficult to fully assess without contrast. At the time of my evaluation the patient was comfortable and sitting without discomfort. This makes an abscess much less likely. I will reassess the patient in the morning. We will reevaluate his symptoms and vital signs overnight. If there is continued concern I will proceed with a CT or MRI of the pelvis with IV contrast for further evaluation. At this time, I suspect we will be able to manage his condition with antibiotics and no surgical intervention Qualifiers: Prostatitis type: acute Qualified Code(s): N41.0 - Acute prostatitis Exam Initial Vital Signs Temp Pulse Resp BP Pulse Ox 100 F H 105 20 134/70 100 03/27/19 22:57 03/27/19 22:57 03/27/19 22:57 03/27/19 22:57 03/27/19 22:57 Urology Results - Labs 03/28/19 08:08 03/28/19 08:08 Abnormal lab results WBC 11.9 K/mcL (4.3-11.1) H 03/28/19 08:08 RBC 3.86 M/mcL (4.19-5.50) L 03/28/19 08:08 Hgb 9.8 g/dL (12.9-16.9) L D 03/28/19 08:08 Hct 31.7 % (37.5-50.1) L 03/28/19 08:08 MCV 82.1 fL (83.0-100.0) L 03/28/19 08:08 MCH 25.4 pg (28.0-33.3) L 03/28/19 08:08 MCHC 30.9 g/dL (31.6-35.5) L 03/28/19 08:08 RDW 15.9 % (11.5-14.5) H 03/28/19 08:08 Neutrophils # 11.8 K/mcL (1.6-8.9) H 03/27/19 23:15 BUN 21 mg/dL (6-20) H 03/28/19 08:08 Glucose 130 mg/dL (70-105) H 03/27/19 23:15 Calcium 8.0 mg/dL (8.6-10.3) L 03/28/19 08:08 Iron < 10 mcg/dL (65-175) L 03/28/19 08:08 Ur Specific [place] > 1.030 (1.010-1.025) H 03/27/19 23:31 Urine Protein 100 mg/dL (Neg-Trace) H 03/27/19 23:31 Urine Glucose (UA) 250 mg/dL (Normal) H 03/27/19 23:31 Urine Blood Trace (Negative) H 03/27/19 23:31 Ur Leukocyte Esterase Small (Negative) H 03/27/19 23:31 Urine Microscopic RBC 3-5 per hpf (0-3) H 03/27/19 23:31 Urine Microscopic WBC 50-100 per hpf (0-3) H 03/27/19 23:31 Ur Squamous Epith Cells Moderate per lpf (None-Few) H 03/27/19 23:31 Ur Culture Indicated? YES (NO) A 03/27/19 23:31 Diabetes panel 03/27/19 03/28/19 Range/Units 23:15 08:08 Sodium 136 139 (136-145) mEq/L Potassium 3.5 3.5 (3.5-5.1) mEq/L Chloride 101 107 (98-107) mEq/L Carbon Dioxide 27 25 (23-29) mEq/L BUN 19 21 H (6-20) mg/dL Creatinine 1.18 1.12 (0.70-1.30) mg/dL Glucose 130 H 72 (70-105) mg/dL Calcium 8.9 8.0 L (8.6-10.3) mg/dL Calcium panel 03/27/19 03/28/19 Range/Units 23:15 08:08 Calcium 8.9 8.0 L (8.6-10.3) mg/dL Pituitary panel 03/27/19 03/28/19 Range/Units 23:15 08:08 Sodium 136 139 (136-145) mEq/L Potassium 3.5 3.5 (3.5-5.1) mEq/L Chloride 101 107 (98-107) mEq/L Carbon Dioxide 27 25 (23-29) mEq/L BUN 19 21 H (6-20) mg/dL Creatinine 1.18 1.12 (0.70-1.30) mg/dL Glucose 130 H 72 (70-105) mg/dL Calcium 8.9 8.0 L (8.6-10.3) mg/dL Adrenal panel 03/27/19 03/28/19 Range/Units 23:15 08:08 Sodium 136 139 (136-145) mEq/L Potassium 3.5 3.5 (3.5-5.1) mEq/L Chloride 101 107 (98-107) mEq/L Carbon Dioxide 27 25 (23-29) mEq/L BUN 19 21 H (6-20) mg/dL Creatinine 1.18 1.12 (0.70-1.30) mg/dL Glucose 130 H 72 (70-105) mg/dL Calcium 8.9 8.0 L (8.6-10.3) mg/dL All other labs normal.
[2019-03-28 10:06] LABS: Iron < 10 mcg/dL (65-175); Transferrin 268 mg/dL (203-362)
[2019-03-28] MEDS ORDERED: Sodium Ferric Gluconat/Sucrose 125 MG in 0.9 % Sodium Chloride 100 ML IVPB SCH (11:23)
[2019-03-28 13:50] LABS: Chlamydia Trachomatis DNA Ur NOT DETECTED (Not Detect)
[2019-03-28] MEDS: *HR* Heparin 5,000 UNIT/ML VIAL SQ SCH (17:21)
[2019-03-28] MEDS: ALPRAZolam 0.5 MG TABLET PO SCH (22:05)
[2019-03-29 03:39] LABS: Basophils % 0.3 %; Eosinophils # 0.2 K/mcL (0.0-0.6); Eosinophils % 2.1 %; Hemoglobin 10.1 g/dL (12.9-16.9); Immature Granulocytes % 0.5 % (0-4); Lymphocytes # 1.6 K/mcL (0.6-4.6); Lymphocytes % 16.4 %; Mean Corpuscular HGB Conc 31.6 g/dL (31.6-35.5); Mean Corpuscular Hemoglobin 25.2 pg (28.0-33.3); Mean Corpuscular Volume 79.8 fL (83.0-100.0); Mean Platelet Volume 10.4 fL (9.4-12.4); Monocytes # 0.7 K/mcL (0.0-1.3); Monocytes % 6.9 %; Platelet Count 210 K/mcL (140-400); Red Blood Count 4.01 M/mcL (4.19-5.50); Red Cell Distribution Width 15.6 % (11.5-14.5); Segmented Neutrophils % 73.8 %; White Blood Count 9.4 K/mcL (4.3-11.1)
[2019-03-29 03:59] LABS: BUN/Creatinine Ratio 12 (6-26); Blood Urea Nitrogen 13 mg/dL (6-20); Calcium 8.2 mg/dL (8.6-10.3); Carbon Dioxide 23 mEq/L (23-29); Chloride 105 mEq/L (98-107); Glucose 152 mg/dL (70-105); Magnesium 1.8 mg/dL (1.6-2.6); Osmolality,Calculated 287 (280-300); Potassium 3.6 mEq/L (3.5-5.1); Sodium 137 mEq/L (136-145); eGFR For African Americans > 60 (> 60); eGFR For Non-African Americans > 60 (> 60)
[2019-03-29] MEDS: *HR* Heparin 5,000 UNIT/ML VIAL SQ SCH ×2 (05:58→16:38)
[2019-03-29] MEDS: Insulin LISPRO 300 UNITS/3 ML VIAL SQ SCH ×4 (07:52→20:47)
[2019-03-29] MEDS ORDERED: Isovue-370 500 ML BOTTLE IVP ONE (07:55)
--- NOTE | 2019-03-29 07:58 | Urology Progress Note ---
Date of Encounter: 03/29/19 Time of Encounter: 07:56 - Assessment and Plan (1) Prostatitis Current Visit: Yes Status: Acute Assessment and plan: Patient did spike to low-grade fevers overnight. Based on his presentation of likely bacterial prostatitis and elected to proceed with CT pelvis with contrast to better evaluate if the abscess could be present. I will provide the patient a diet today as he is unlikely to go to the operating room even if an abscess is present. If the CT pelvis is negative for abscess, it is still recommended that the patient stay until his urine cultures are final to drive the appropriate by mouth antibiotics for outpatient management. Alternatively, the patient could consider discharge on Bactrim for 6 weeks and we would follow cultures to confirm he is on the proper antibiotic. This does place the patient at risk to bounce back to the hospital if he is resistant to Bactrim Qualifiers: Prostatitis type: acute Qualified Code(s): N41.0 - Acute prostatitis Progress Note Subjective: feels better, still having pain, fever Objective Initial Vital Signs Temp Pulse Resp BP Pulse Ox 100 F H 105 20 134/70 100 03/27/19 22:57 03/27/19 22:57 03/27/19 22:57 03/27/19 22:57 03/27/19 22:57 - General physical appearance Present: well developed, no distress - Abdomen Present: soft - Labs 03/29/19 03:16 03/29/19 03:16 Diabetes panel 03/28/19 03/29/19 Range/Units 08:08 03:16 Sodium 139 137 (136-145) mEq/L Potassium 3.5 3.6 (3.5-5.1) mEq/L Chloride 107 105 (98-107) mEq/L Carbon Dioxide 25 23 (23-29) mEq/L BUN 21 H 13 (6-20) mg/dL Creatinine 1.12 1.06 (0.70-1.30) mg/dL Glucose 72 152 H (70-105) mg/dL Calcium 8.0 L 8.2 L (8.6-10.3) mg/dL Calcium panel 03/28/19 03/29/19 Range/Units 08:08 03:16 Calcium 8.0 L 8.2 L (8.6-10.3) mg/dL Pituitary panel 03/28/19 03/29/19 Range/Units 08:08 03:16 Sodium 139 137 (136-145) mEq/L Potassium 3.5 3.6 (3.5-5.1) mEq/L Chloride 107 105 (98-107) mEq/L Carbon Dioxide 25 23 (23-29) mEq/L BUN 21 H 13 (6-20) mg/dL Creatinine 1.12 1.06 (0.70-1.30) mg/dL Glucose 72 152 H (70-105) mg/dL Calcium 8.0 L 8.2 L (8.6-10.3) mg/dL Adrenal panel 03/28/19 03/29/19 Range/Units 08:08 03:16 Sodium 139 137 (136-145) mEq/L Potassium 3.5 3.6 (3.5-5.1) mEq/L Chloride 107 105 (98-107) mEq/L Carbon Dioxide 25 23 (23-29) mEq/L BUN 21 H 13 (6-20) mg/dL Creatinine 1.12 1.06 (0.70-1.30) mg/dL Glucose 72 152 H (70-105) mg/dL Calcium 8.0 L 8.2 L (8.6-10.3) mg/dL Consult Discharge Plan - Plan Referrals: Dorothea Martinez CNP [Primary Care Provider] -
--- NOTE | 2019-03-29 09:23 | Internal Med Progress Note ---
Hospitalist Progress Note - Encounter Date of Encounter: 03/29/19 Time of Encounter: 07:15 - Subjective Interval History: Reports improvement in pain over his perineum. Denies any melena, hematochezia, BRBPR, hematemesis, or hemoptysis. No chest pain or SOB. Patient however did have a temperature of 100.3 at 11pm last night. - Exam Vitals: Temp Pulse Resp BP Pulse Ox 99.6 F 93 17 127/70 97 03/29/19 07:10 03/29/19 07:10 03/29/19 07:10 03/29/19 07:10 03/29/19 07:10 Exam: General: Alert and oriented, not in acute distress. Cardiovascular:Normal S1 & S2, No JVD. Pulse regular. Lungs: clear to auscultation, no wheezes/rales Abdomen:Soft, non-tender, no rigidity. Extremities:No deformity or swelling Neurological:Normal cognition and motor skills. Non-focal - Assessment and Plan (1) Sepsis Current Visit: Yes Status: Acute Assessment and Plan: Presented with fever, tachycardia, and leukocytosis CT showed evidence of prostatitis Gonorrhea and Chlamydia negative, denies any high risk sexual behavior Started on IV Levaquin, continue. White blood cell count normalized today urine culture growing GNR Patient however still had temperature 100.3 overnight. Appreciate urology input, for CT today (2) Prostatitis Current Visit: Yes Status: Acute Assessment and Plan: As above (3) Iron deficiency anemia Current Visit: Yes Status: Chronic Assessment and Plan: Incidental finding of hemoglobin of 10, drop from 13.4 in 06/2017 workup showed [place] Patient states that he has outpatient colonoscopy scheduled for next week. Given his current episode of prostatitis, will probably need to defer to later date IV iron while inpatient (4) Diabetes Current Visit: Yes Status: Chronic Assessment and Plan: continue low dose sliding scale (5) DVT prophylaxis Current Visit: Yes Status: Acute Assessment and Plan: SQ heparin, no evidence of active bleeding - Time Spent with Patient Total time spent is greater than 50% in coordination of care (as documented) at patient's floor/unit and/or counseling patient: 25 - 35 minutes Plan of Care Discussed with: patient Internal Medicine: Result - Labs CBC & Chem 7: 03/29/19 03:16 03/29/19 03:16 Labs: Short CBC 03/29/19 Range/Units 03:16 WBC 9.4 (4.3-11.1) K/mcL Hgb 10.1 L (12.9-16.9) g/dL Hct 32.0 L (37.5-50.1) % Plt Count 210 (140-400) K/mcL Neutrophils # 7.0 (1.6-8.9) K/mcL BMP 03/29/19 03:16 Sodium 137 Potassium 3.6 Chloride 105 Carbon Dioxide 23 BUN 13 Creatinine 1.06 Glucose 152 H Calcium 8.2 L Urine 03/27/19 Range/Units 23:31 Urine Color Dark Yellow (Yellow) Urine Clarity Clear (Clear) Urine pH 5.5 (5.0-8.0) pH Units Ur Specific [place] > 1.030 H (1.010-1.025) Urine Protein 100 H (Neg-Trace) mg/dL Urine Glucose (UA) 250 H (Normal) mg/dL Consult Discharge Plan - Plan Referrals: Dorothea Martinez, DIRECTOR OF [employer]LYT[employer] [Primary Care Provider] - (1) Sepsis Qualifiers: Sepsis type: sepsis due to unspecified organism Sepsis acute organ dysfunction status: without acute organ dysfunction Qualified Code(s): A41.9 - Sepsis, unspecified organism (2) Prostatitis Qualifiers: Prostatitis type: acute Qualified Code(s): N41.0 - Acute prostatitis (3) Iron deficiency anemia Qualifiers: Iron deficiency anemia type: unspecified iron deficiency Qualified Code(s): D50.9 - Iron deficiency anemia, unspecified (4) Diabetes Qualifiers: Diabetes mellitus type: type 2 Diabetes mellitus termite control servicer insulin use: without termite control servicer use Diabetes mellitus complication status: with hyperglycemia Qualified Code(s): E11.65 - Type 2 diabetes mellitus with hyperglycemia
[2019-03-29] MEDS: Aspirin Enteric Coated 81 MG Tablet PO SCH (10:30)
[2019-03-29] MEDS: levoFLOXacin 750 MG/150 ML 750 MG/150 ML BAG IVPB SCH (10:30)
[2019-03-29] MEDS: ALPRAZolam 0.5 MG TABLET PO SCH (20:47)
[2019-03-30 04:40] LABS: Basophils % 0.3 %; Eosinophils # 0.3 K/mcL (0.0-0.6); Eosinophils % 5.4 %; Hematocrit 34.6 % (37.5-50.1); Hemoglobin 10.7 g/dL (12.9-16.9); Immature Granulocytes % 0.3 % (0-4); Lymphocytes # 1.7 K/mcL (0.6-4.6); Lymphocytes % 30.2 %; Mean Corpuscular HGB Conc 30.9 g/dL (31.6-35.5); Mean Corpuscular Hemoglobin 25.4 pg (28.0-33.3); Mean Platelet Volume 11.3 fL (9.4-12.4); Monocytes # 0.6 K/mcL (0.0-1.3); Monocytes % 9.6 %; Neutrophils # 3.1 K/mcL (1.6-8.9); Platelet Count 213 K/mcL (140-400); Red Blood Count 4.22 M/mcL (4.19-5.50); Red Cell Distribution Width 15.6 % (11.5-14.5); Segmented Neutrophils % 54.2 %; White Blood Count 5.7 K/mcL (4.3-11.1)
[2019-03-30 05:00] LABS: BUN/Creatinine Ratio 16 (6-26); Blood Urea Nitrogen 14 mg/dL (6-20); Calcium 8.8 mg/dL (8.6-10.3); Carbon Dioxide 23 mEq/L (23-29); Chloride 103 mEq/L (98-107); Glucose 185 mg/dL (70-105); Osmolality,Calculated 287 (280-300); Potassium 3.9 mEq/L (3.5-5.1); Sodium 136 mEq/L (136-145); eGFR For African Americans > 60 (> 60); eGFR For Non-African Americans > 60 (> 60)
[2019-03-30 05:13] LABS: Platelet Estimate Normal (Normal)
[2019-03-30] MEDS: *HR* Heparin 5,000 UNIT/ML VIAL SQ SCH (05:20)
[2019-03-30 07:14] VITALS: BP 131/83
[2019-03-30] MEDS: levoFLOXacin 750 MG/150 ML 750 MG/150 ML BAG IVPB SCH (08:46)
[2019-03-30] MEDS: Aspirin Enteric Coated 81 MG Tablet PO SCH (08:46)
[2019-03-30] MEDS: Insulin LISPRO 300 UNITS/3 ML VIAL SQ SCH (08:47)
--- NOTE | 2019-03-30 10:09 | Urology Progress Note ---
Date of Encounter: 03/30/19 Time of Encounter: 10:08 - Assessment and Plan (1) Prostatitis Current Visit: Yes Status: Acute Assessment and plan: no abscess based on CT scan. ok to discharge. recommend bactrim DS po bid for 30 days. my office will call to schedule followup appt. Qualifiers: Prostatitis type: acute Qualified Code(s): N41.0 - Acute prostatitis Progress Note Narrative: pt feels better. no fever. ct scan without evidence of abscess Objective Initial Vital Signs Temp Pulse Resp BP Pulse Ox 100 F H 105 20 134/70 100 03/27/19 22:57 03/27/19 22:57 03/27/19 22:57 03/27/19 22:57 03/27/19 22:57 - General physical appearance Present: no distress - Abdomen Present: soft, non tender - Labs 03/30/19 03:31 03/30/19 03:31 Diabetes panel 03/30/19 Range/Units 03:31 Sodium 136 (136-145) mEq/L Potassium 3.9 (3.5-5.1) mEq/L Chloride 103 (98-107) mEq/L Carbon Dioxide 23 (23-29) mEq/L BUN 14 (6-20) mg/dL Creatinine 0.87 (0.70-1.30) mg/dL Glucose 185 H (70-105) mg/dL Calcium 8.8 (8.6-10.3) mg/dL Calcium panel 03/30/19 Range/Units 03:31 Calcium 8.8 (8.6-10.3) mg/dL Pituitary panel 03/30/19 Range/Units 03:31 Sodium 136 (136-145) mEq/L Potassium 3.9 (3.5-5.1) mEq/L Chloride 103 (98-107) mEq/L Carbon Dioxide 23 (23-29) mEq/L BUN 14 (6-20) mg/dL Creatinine 0.87 (0.70-1.30) mg/dL Glucose 185 H (70-105) mg/dL Calcium 8.8 (8.6-10.3) mg/dL Adrenal panel 03/30/19 Range/Units 03:31 Sodium 136 (136-145) mEq/L Potassium 3.9 (3.5-5.1) mEq/L Chloride 103 (98-107) mEq/L Carbon Dioxide 23 (23-29) mEq/L BUN 14 (6-20) mg/dL Creatinine 0.87 (0.70-1.30) mg/dL Glucose 185 H (70-105) mg/dL Calcium 8.8 (8.6-10.3) mg/dL Consult Discharge Plan - Plan Referrals: Dorothea Martinez, LEI [Primary Care Provider] -
--- NOTE | 2019-03-30 11:13 | Discharge Summary ---
- NOTES TO OUTPATIENT PROVIDER Notes to Outpatient Provider: Patient will need outpatient colonoscopy for positive stool occult blood and iron deficiency anemia. Home meloxicam held given positive stool occult and anemia. Related to follow-up with urology as outpatient as well. Orders not resulted at time of discharge: Pending orders 03/27/19 23:15 Culture,Blood [BC] Stat Date of Encounter: 03/30/19 Time of Encounter: 11:10 - Discharge Diagnosis (1) Prostatitis Priority: Primary Status: Acute Qualifiers: Prostatitis type: acute Qualified Code(s): N41.0 - Acute prostatitis (2) Diabetes Priority: Secondary Status: Chronic Qualifiers: Diabetes mellitus type: type 2 Diabetes mellitus salvage determiner insulin use: without jail use Diabetes mellitus complication status: with hyperglycemia Qualified Code(s): E11.65 - Type 2 diabetes mellitus with hyperglycemia (3) DVT prophylaxis Priority: Secondary Status: Acute (4) Sepsis Priority: Primary Status: Acute Qualifiers: Sepsis type: sepsis due to unspecified organism Sepsis acute organ dysfunction status: without acute organ dysfunction Qualified Code(s): A41.9 - Sepsis, unspecified organism (5) Iron deficiency anemia Priority: Secondary Status: Chronic Qualifiers: Iron deficiency anemia type: unspecified iron deficiency Qualified Code(s): D50.9 - Iron deficiency anemia, unspecified Hospital course: Mr. Newton is a 53 year old male with past medical history of diabetes, hypertension, CAD came in with fevers and chills and malaise was found to have prostatitis. He was started on empiric antibiotics which was later switched to Levaquin. Patient had CT pelvis with contrast to rule out abscess which was unremarkable and again demonstrated prostatitis. Urine culture finalized with Escherichia coli sensitive to Bactrim. Patient was found to have iron deficiency anemia and positive stool occult and had plan for outpatient colonoscopy. Her hemoglobin remained stable in hospital. Patient is otherwise stable to be discharged to follow up outpatient for colonoscopy as well as urology after finishing 30 days of Bactrim. Discharge discussed with: patient, family, nurse, outplacement consultant - Time Spent with Patient Total time spent providing and/or coordinating discharge services: Time spent: Greater than 30 minutes (40) - Discharge Medications Prescriptions: New Sulfamethoxazole/Trimeth DS [Bactrim DS] 1 each PO BID 30 Days #60 tablet Ferrous Sulfate 325 mg PO BID 30 Days #60 tablet Continued Cyclobenzaprine [Flexeril] 10 mg PO HS ALPRAZolam [Xanax 0.5 MG Tablet] 0.5 mg PO HS Simvastatin [Zocor] 40 mg PO HS Lisinopril [Zestril] 40 mg PO DAILY Insulin Degludec [Tresiba Flextouch U-100] 46 unit SQ DAILY Cholecalciferol (Vitamin D3) [Vitamin D3] 10,000 unit PO MO Pioglitazone HCl 45 mg PO DAILY Metformin HCl 1,000 mg PO BID Glimepiride [Amaryl] 4 mg PO BID Carvedilol [Coreg] 25 mg PO BID Aspirin [Lo-Dose Aspirin EC] 81 mg PO DAILY Discontinued Meloxicam 15 mg PO DAILY Home Medications: ALPRAZolam [Xanax 0.5 MG Tablet] 0.5 mg PO HS 03/28/19 [History] Aspirin [Lo-Dose Aspirin EC] 81 mg PO DAILY 03/28/19 [History] Carvedilol [Coreg] 25 mg PO BID 03/28/19 [History] Cholecalciferol (Vitamin D3) [Vitamin D3] 10,000 unit PO MO 03/28/19 [History] Cyclobenzaprine [Flexeril] 10 mg PO HS 03/28/19 [History] Glimepiride [Amaryl] 4 mg PO BID 03/28/19 [History] Insulin Degludec [Tresiba Flextouch U-100] 46 unit SQ DAILY 03/28/19 [History] Lisinopril [Zestril] 40 mg PO DAILY 03/28/19 [History] Metformin HCl 1,000 mg PO BID 03/28/19 [History] Pioglitazone HCl 45 mg PO DAILY 03/28/19 [History] Simvastatin [Zocor] 40 mg PO HS 03/28/19 [History] Ferrous Sulfate 325 mg PO BID 30 Days #60 tablet 03/30/19 [Rx] Sulfamethoxazole/Trimeth DS [Bactrim DS] 1 each PO BID 30 Days #60 tablet 03/30/19 [Rx] Allergies/Adverse Reactions: Allergy/AdvReac Type Severity Reaction Status Date / Time No Known Allergies Allergy Verified 07/07/17 14:53 Date of admission: 03/28/19 02:21 Primary care physician: Dorothea Martinez, Consults: 03/28/19 08:47 Consult to Urology [CONS] Routine Consulting Provider: Urology Joyce Reason for Consult: sepsis, prostatitis Call Completed: Yes Discharging clinician: Chaparrita Washburn - Constitutional Vitals: Temp Pulse Resp BP Pulse Ox 98.2 F 77 15 131/83 99 03/30/19 07:11 03/30/19 07:11 03/30/19 07:11 03/30/19 07:11 03/30/19 05:20 Exam: General: In no acute distress. Respiratory exam: CTAB. no accessory muscle use, rales, rhonchi, wheezes Cardiovascular exam: RRR, +S1, +S2. no murmur, gallop, rubs. GI/Abdominal exam: Non-tender, Non-distended, normal bowel sounds, soft, no peritoneal signs. Extremities exam: no pedal edema, pulses palpable in b/l lower extremities. no calf tenderness Neurological exam: CN II-XII intact, AO X3, no focal deficits. Skin exam: No skin rash - Patient Status Disposition: Home, Self-Care Condition: Fair - Discharge Instructions Follow Up With: Dorothea Martinez PIE TOPPER [Primary Care Provider] - (Please call primary care provider tomorrow and schedule a follow-up appointment.) - Diet and Activity Activity: increase activity as tolerated
[2019-03-31] MEDS ORDERED: levoFLOXacin 750 MG TABLET PO SCH (09:00)
== END 2019-03-30 11:59 | disposition home or self-care (01) ==
LOC: 2NENU 22:46 → EMEROOARM 22:46 → SUATTDRO 03-28 02:21 → 2NENU 03-28 04:30
PROVIDERS: ADMIT Family Medicine; ATTEND Internal Medicine